=== PATIENT | female | born 1985 | race Hispanic/Latino ===

== ENCOUNTER 2018-02-01 05:24 | Emergency (ER) | payer OTHER ==
[2018-02-01 05:49] LABS: APPEARANCE,URINE Cloudy (CLEAR); BILIRUBIN,URINE Negative (NEGATIVE); COLOR,URINE Yellow (YELLOW); GLUCOSE, URINE (UA) Negative (NEGATIVE); KETONES,URINE Trace mg/dL (NEGATIVE); LEUKOCYTE ESTERASE ,URINE Small (NEGATIVE); NITRATE,URINE Negative (NEGATIVE); OCCULT BLOOD,URINE Large (NEGATIVE); PROTEIN,URINE Negative (NEGATIVE)
[2018-02-01] MEDS ORDERED: MAGNESIUM CITRATE 296 ML SOLUTION ONE (06:06)
[2018-02-01] MEDS ORDERED: BISACODYL 10 MG SUPP.RECT RC ONE (06:06)
[2018-02-01 06:11] LABS: BACTERIA,URINE Few /HPF (None Seen); MUCUS,URINE Few LPF (None Seen)
== END 2018-02-01 07:06 | disposition home or self-care (01) ==
LOC: EDH 05:24
DX: K59.00 Constipation, unspecified (principal)
CPT/HCPCS: 81001; 81025